=== PATIENT | female | born 1990 | race Caucasian/White ===

== ENCOUNTER 2017-12-16 20:34 | Emergency (ER) | payer MEDICAID ==
[2017-12-17 00:21] LABS: ADD MAN DIFF? NO
[2017-12-17 00:23] LABS: BASOPHILS % 0.4 % (0.0-2.0); EOSINOPHILS % 0.5 % (0.0-7.0); HEMATOCRIT 35.8 % (37.0-47.0); HEMOGLOBIN 12.1 g/dl (12.0-16.0); LYMPHOCYTES # 1.8 10^3/ul (0.8-2.9); LYMPHOCYTES % 20.7 % (15.0-51.0); MEAN CORPUSCULAR HEMOGLOBIN 30.9 pg (29.0-33.0); MEAN CORPUSCULAR HGB CONC 33.8 g/dl (32.0-37.0); MEAN CORPUSCULAR VOLUME 91.6 fl (82.0-101.0); MEAN PLATELET VOLUME 10.1 fl (7.4-10.4); MONOCYTE # 0.7 10^3/ul (0.3-0.9); MONOCYTES % 8.1 % (0.0-11.0); NEUTROPHILS % 69.9 % (39.0-77.0); PLATELET COUNT 239 10^3/UL (140-415); RED BLOOD COUNT 3.91 10^6/ul (4.20-5.40); RED CELL DISTRIBUTION WIDTH 13.8 % (11.5-14.5)
[2017-12-17 00:23] LABS: WHITE BLOOD COUNT 8.5 10^3/ul (4.8-10.8)
[2017-12-17 00:28] LABS: ADD UMIC YES; UR ASCORBIC ACID NEGATIVE (NEGATIVE); UR BILIRUBIN (Dip) NEGATIVE (NEGATIVE); UR BLOOD (Dip) 2+ mg/dL (NEGATIVE); UR CLARITY CLEAR (CLEAR); UR COLOR YELLOW (YELLOW); UR GLUCOSE (Dip) NEGATIVE (NEGATIVE); UR KETONES (Dip) 2+ mg/dL (NEGATIVE); UR LEUKOCYTE ESTERASE (Dip) NEGATIVE Leu/ul (NEGATIVE); UR MUCUS FEW /HPF (NONE SEEN); UR NITRITE (Dip) NEGATIVE (NEGATIVE); UR RBC 3 /HPF (0-5); UR SPECIFIC GRAVITY (Dip) 1.019 (1.003-1.030); UR SQUAMOUS EPITHELIAL CELL FEW /HPF (FEW); UR TOTAL PROTEIN (Dip) NEGATIVE (NEGATIVE); UR UROBILINOGEN (Dip) NEGATIVE (NEGATIVE); UR WBC 1 /HPF (0-5)
== END 2017-12-17 02:09 | disposition home or self-care (01) ==
LOC: FTE 20:34
DX: O20.9 Hemorrhage in early pregnancy, unspecified (principal); R10.2 Pelvic and perineal pain; Z3A.01 Less than 8 weeks gestation of pregnancy
CPT/HCPCS: 36415; 76801; 81001; 84702; 85025; 86900; 86901; 99284-25

== ENCOUNTER 2018-07-03 06:17 | Inpatient (IN) | payer OTHER ==
[2018-07-03] MEDS ORDERED: BUTORPHANOL 2 MG INJ IV (07:00)
[2018-07-03] MEDS ORDERED: CARBOPROST 250 MCG INJ IM ×2 (07:00→18:30)
[2018-07-03] MEDS ORDERED: MISOPROSTOL 200 MCG TAB PR ×2 (07:00→18:30)
[2018-07-03] MEDS ORDERED: OXYTOCIN 30 UNITS/LR 500 ML IV ×3 (07:00→18:30)
[2018-07-03] MEDS ORDERED: METHYLERGONOVINE 0.2 MG INJ IM ×2 (07:00→18:30)
[2018-07-03] MEDS: LACTATED RINGER'S 1,000 ML IV ×5 (07:52→19:00)
[2018-07-03 08:08] LABS: ADD MAN DIFF? NO
[2018-07-03 08:13] LABS: BASOPHILS % 0.3 % (0.0-2.0); EOSINOPHILS % 0.1 % (0.0-7.0); HEMATOCRIT 38.9 % (37.0-47.0); HEMOGLOBIN 13.4 g/dl (12.0-16.0); LYMPHOCYTES # 1.4 10^3/ul (0.8-2.9); LYMPHOCYTES % 12.3 % (15.0-51.0); MEAN CORPUSCULAR HEMOGLOBIN 32.8 pg (29.0-33.0); MEAN CORPUSCULAR HGB CONC 34.4 g/dl (32.0-37.0); MEAN CORPUSCULAR VOLUME 95.3 fl (82.0-101.0); MEAN PLATELET VOLUME 10.9 fl (7.4-10.4); MONOCYTE # 0.9 10^3/ul (0.3-0.9); MONOCYTES % 7.7 % (0.0-11.0); NEUTROPHIL # 9.1 10^3/ul (1.6-7.5); NEUTROPHILS % 79.1 % (39.0-77.0); PLATELET COUNT 178 10^3/UL (140-415); RED BLOOD COUNT 4.08 10^6/ul (4.20-5.40); RED CELL DISTRIBUTION WIDTH 12.2 % (11.5-14.5)
[2018-07-03 08:13] LABS: WHITE BLOOD COUNT 11.5 10^3/ul (4.8-10.8)
[2018-07-03 09:02] LABS: INR 0.96; PROTIME 12.9 Sec (11.9-14.9)
[2018-07-03 09:15] LABS: HEPATITIS B SURFACE ANTIGEN NEGATIVE (NEGATIVE)
[2018-07-03] MEDS ORDERED: NALOXONE (0.4 MG/ML) INJ IV (09:30)
[2018-07-03] MEDS: FENTAnyl 2MCG/ML-ROPIV 0.2% 100 ML BAG EPI (11:46)
[2018-07-03] MEDS: AMPICILLIN 2 GM/NS (PMX) 100 ML IV (13:24)
[2018-07-03] MEDS: MINERAL OIL LIGHT 10 ML VIAL TOP (16:00)
[2018-07-03] MEDS: LIDOCAINE 1% (MPF) 30 ML INJ INJ (16:05)
[2018-07-03] MEDS: OXYTOCIN 30 UNITS/LR 500 ML IV ×3 (16:09→19:00)
[2018-07-03] MEDS ORDERED: ONDANSETRON 4 MG INJ (16:27)
[2018-07-03] MEDS: IBUPROFEN 600 MG TAB PO ×2 (16:29→23:58)
[2018-07-03] MEDS: ONDANSETRON 4 MG INJ IV (16:39)
[2018-07-03 17:12] LABS: RAPID PLASMA REAGIN NONREACTIVE (NR)
[2018-07-03] MEDS: AMPICILLIN 1 GM/NS (PMX) 50 ML IV (17:30)
[2018-07-03] MEDS ORDERED: OXYCODONE/ASPIRIN (4.88/325) TAB PO (18:30)
[2018-07-03] MEDS ORDERED: ZOLPIDEM 5 MG TAB PO (18:30)
[2018-07-03] MEDS: LANOLIN HPA 1 PKT TOP (19:00)
[2018-07-03] MEDS: BENZOCAINE 20% 56 ML SPRAY TOP (19:01)
[2018-07-03] MEDS: WITCH HAZEL/GLYCERIN PAD PR (19:01)
[2018-07-03] MEDS: SENNA/DOCUSATE NA (8.6MG/50MG) TAB PO (20:54)
[2018-07-04] MEDS: OXYTOCIN 30 UNITS/LR 500 ML IV ×4 (01:25→11:00)
[2018-07-04] MEDS: LACTATED RINGER'S 1,000 ML IV ×2 (03:00→11:00)
[2018-07-04] MEDS: OXYCODONE/ASPIRIN (4.88/325) TAB PO (04:46)
[2018-07-04] MEDS: IBUPROFEN 600 MG TAB PO ×4 (05:39→23:43)
[2018-07-04 08:45] LABS: ADD MAN DIFF? NO
[2018-07-04 08:47] LABS: BASOPHIL # 0.1 10^3/ul (0.0-0.1); BASOPHILS % 0.3 % (0.0-2.0); EOSINOPHILS % 0.3 % (0.0-7.0); HEMOGLOBIN 11.6 g/dl (12.0-16.0); LYMPHOCYTES # 1.7 10^3/ul (0.8-2.9); LYMPHOCYTES % 11.7 % (15.0-51.0); MEAN CORPUSCULAR HEMOGLOBIN 33.3 pg (29.0-33.0); MEAN CORPUSCULAR HGB CONC 34.1 g/dl (32.0-37.0); MEAN CORPUSCULAR VOLUME 97.7 fl (82.0-101.0); MEAN PLATELET VOLUME 10.8 fl (7.4-10.4); MONOCYTES % 6.5 % (0.0-11.0); NEUTROPHILS % 80.7 % (39.0-77.0); PLATELET COUNT 144 10^3/UL (140-415); RED BLOOD COUNT 3.48 10^6/ul (4.20-5.40); RED CELL DISTRIBUTION WIDTH 12.5 % (11.5-14.5)
[2018-07-04 08:47] LABS: WHITE BLOOD COUNT 14.9 10^3/ul (4.8-10.8)
[2018-07-04] MEDS: SENNA/DOCUSATE NA (8.6MG/50MG) TAB PO ×2 (08:59→21:34)
[2018-07-05] MEDS: IBUPROFEN 600 MG TAB PO ×2 (05:35→12:49)
[2018-07-05] MEDS: DIPHTH/TET/ACEL PERTUSS (ADULT) 0.5 ML VIAL IM* (09:00)
[2018-07-05] MEDS: SENNA/DOCUSATE NA (8.6MG/50MG) TAB PO (10:15)
== END 2018-07-05 13:40 | disposition home or self-care (01) | DRG 807 ==
LOC: OBT 06:17 → L-D 06:19 → OBT 06:50 → L-D 06:50 → PP1 18:29
PROVIDERS: Obstetrics & Gynecology
PROC: 10E0XZZ Delivery of Products of Conception, External Approach (ICD-10-PCS; principal; 2018-07-03)
PROC: 0W8NXZZ Division of Female Perineum, External Approach (ICD-10-PCS; 2018-07-03)
DX: O76 Abnormality in fetal heart rate and rhythm complicating labor and delivery (principal); Z37.0 Single live birth; Z3A.39 39 weeks gestation of pregnancy
CPT/HCPCS: 76815; 76818; 85025; 85610; 85730; 86592; 86850; 86900; 86901; 87340; 99464